=== PATIENT | female | born 1985 | race Caucasian/White ===

== ENCOUNTER 2017-05-05 02:08 | Emergency (ER) | payer BC ==
--- NOTE | 2017-05-05 02:25 | ED Physician Documentation ---
Neck Injury/Pain - HISTORIAN Historian: patient - HPI Stated Complaint: neck/right shoulder pain Chief Complaint: Neck Pain Additional Information: woke up 2 days ago with this pain, Right sided now radiating down to right shoulder, denies trauma, has had similar in past, thinks she slept wrong, has been using heat pad on it. no other complaints, Onset: days ago Duration: continues in ED Recent Injury: No Severity: moderate Quality: burning, sharp, similar- prior back pain Associated Symptoms: denies: fever, chills, sweating, headache, chest pain, weakness, numbness Exacerbated By: movement of neck Relieved By: nothing Further Comments: no - ROS NEURO/PSYCH: denies: difficulty with speech, anxiety EYES/ENT: none CVS/RESP: none CONST: no problems GI/: denies: nausea, vomiting MS/SKIN/LYMPH: none - PAST HX Past History: neck pain. denies: neck injury Cardiac Risk Factors: denies: cardiac disease Surgeries/Procedures: denies: neck surgery, back surgery CT/MRI: No Allergies/Adverse Reactions: Allergies Allergy/AdvReac Type Severity Reaction Status Date / Time cinnamon [Cinnamon] Allergy Verified 05/05/17 02:17 Home Medications: Ambulatory Orders Medication Instructions Recorded NK [NK] 05/05/17 - SOCIAL HX Smoking History: non-smoker Alcohol Use: none Drug Use: none - FAMILY HX Family History: no significant history - VITAL SIGNS Vital Signs: Vital Signs Temp Pulse Resp BP Pulse Ox 99.5 F 86 16 100/85 97 05/05/17 02:10 05/05/17 02:10 05/05/17 02:10 05/05/17 02:10 05/05/17 02:10 - REVIEWED ASSESSMENT Nursing Assessment Reviewed: Yes Vitals Reviewed: Yes Neck Injury/Pain - Physical Exam General Appearance: alert, mild distress EENT: nml ENT inspection Neck: muscle spasm, decreased ROM Nexus Criteria: Nexus criteria neg Back: non-tender Respiratory: chest non-tender Abdomen: non-tender Skin: warm/dry, normal color Extremities: non-tender, normal range of motion, no evidence of injury Neuro/Psych: oriented x3, sensation nml, mood/affect nml Discharge Clincal Impression: Neck pain on right side, Cervical radiculopathy Referrals: [place],Pura, MD [Primary Care Provider] - 2 Days Home Medications: Ambulatory Orders NK [NK] 05/05/17 Condition: Stable Disposition: 01 HOME, SELF-CARE Decision to Admit: NO Date of Decison to Admit: 05/05/17 Decision Time: 02:28
[2017-05-05] MEDS ORDERED: KETOROLAC TROMETHAMINE 30 MG/1ML VIAL ONE (02:30)
[2017-05-05] MEDS ORDERED: ORPHENADRINE CITRATE 60 MG/2ML ONE (02:30)
[2017-05-05] MEDS ORDERED: methylPREDNISolone SOD SUCC 125 MG/2 ML VIAL ONE (02:30)
[2017-05-05] MEDS: methylPREDNISolone SOD SUCC 125 MG/2 ML VIAL IM ONE (02:34)
[2017-05-05] MEDS: ORPHENADRINE CITRATE 60 MG/2ML IM ONE (02:35)
[2017-05-05] MEDS: KETOROLAC TROMETHAMINE 30 MG/1ML VIAL IM ONE (02:36)
[2017-05-05 02:48] VITALS: BP 100/65
== END 2017-05-05 02:45 | disposition home or self-care (01) ==
LOC: ED 02:08
DX: M54.12 Radiculopathy, cervical region (principal); M54.2 Cervicalgia
CPT/HCPCS: 99283; J1885; J2930; J2360

== ENCOUNTER 2018-10-25 07:33 | Emergency (ER) | payer BC ==
--- NOTE | 2018-10-25 08:07 | Diagnostic Imaging Report ---
CONNER CORONA (CEO ZIFF DAVIS) - ER [facility] [address] [facility].[address] 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 History: Evaluate lung chapman. CHEST PAIN AND COUGH SINCE THIS MORNING Comparison exam: None provided. Findings: PA and lateral views of the chest demonstrates a normal cardiac and mediastinal silhouette. No focal infiltrate. No blunting of the costophrenic margins. Osseous structures are appropriate for age. Impression: No acute pulmonary process. Electronically signed on Oct 25, 2018 8:04:55 AM COSTUME DESIGN TEACHER by: Jona PAULA
[2018-10-25] MEDS ORDERED: GUAIFENESIN/CODEINE 10 ML S/F LIQUID DOSE CUP PO ONE (08:23)
--- NOTE | 2018-10-25 08:31 | ED Physician Documentation ---
Upper Respiratory Symptoms - HISTORIAN Historian: patient - HPI Stated Complaint: chest pain Chief Complaint: Cough/ Upper Respiratory Further Comments: yes (33 year old female patient brought in via EMS with cough for 1 month, "coughing so hard I pee my pants", chest sided chest pain which started while she was at work at [employer] today.) - ROS CONST/EYES: denies: weakness, eye redness, eye itching, other CVS/RESP: chest pain. denies: shortness of breath, palpitations LYMPH: denies: leg swelling, rash, swollen glands, ankle swelling, other GI/: none NEURO/PSYCH: denies: fainting, dizziness, confusion, anxiety, depression, other MS/SKIN: denies: joint pain, muscle aches, rash, other - PAST HX Lung Disease: none PE Risk Factors: none Surgeries/Procedures: none Allergies/Adverse Reactions: Allergies Allergy/AdvReac Type Severity Reaction Status Date / Time cinnamon [Cinnamon] Allergy Verified 10/25/18 07:44 Home Medications: Ambulatory Orders Medication Instructions Recorded Albuterol Sulfate [Proair Hfa] 8.5 gm IH Q4H PRN #1 hfa.aer.ad 10/25/18 Cefdinir [Omnicef] 300 mg PO BID #28 capsule 10/25/18 - SOCIAL HX Smoking History: cigarettes - FAMILY HX Family History: denies: none - VITAL SIGNS Vital Signs: Vital Signs Temp Pulse Resp BP Pulse Ox 97.6 F 72 18 116/78 100 10/25/18 07:33 10/25/18 08:51 10/25/18 08:51 10/25/18 08:51 10/25/18 08:51 - REVIEWED ASSESSMENTS Nursing Assessment Reviewed: Yes Vitals Reviewed: Yes Progress - Progress Progress: Reviewed EKG and chest xray results with patient. Reviewed discharge instructions, questions answered. Verbalized understanding. - EKG/XRAY/CT EKG: rhythm (Sr, no acute changes. ) ED Results Lab/Radiology - Lab Results Lab Results: Lab Results 10/25/18 08:04 Influenza A (Rapid) Negative (NEGATIVE) Influenza B (Rapid) Negative (NEGATIVE) - Radiology Radiology Impressions: Examination: PA and lateral chest. History: Evaluate lung chapman. CHEST PAIN AND COUGH SINCE THIS MORNING Comparison exam: None provided. Findings: PA and lateral views of the chest demonstrates a normal cardiac and mediastinal silhouette. No focal infiltrate. No blunting of the costophrenic margins. Osseous structures are appropriate for age. Impression: No acute pulmonary process. Electronically signed on Oct 25, 2018 8:04:55 AM CLAY PREPARATION SUPERVISOR by: Jona Cedeño - Orders Orders: ED Orders Category Date Time Status CHEST 2VIEW [RAD] Stat Exams 10/25/18 07:38 Completed INFLUENZA A&B Stat Lab 10/25/18 08:04 Completed Codeine Phosphate/Guaifenesin [Robitussin AC] Med 10/25/18 08:23 Discontinued 10 ml PO NOW ONE EKG WITH COMPARISON Stat Ther 10/25/18 07:38 Completed Upper Respiratory Symptoms - EXAM General Appearance: mild distress EENT: eyes nml inspection, lids & conjunct. nml, PERRL, ear nml, pain over sinuses, frontal, maxillary, ethmoid, mucosal edema, purulent nasal drainage, airway nml, pharyngeal erythema Respiratory: no resp. 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 group work program aide an over the counter decongestant such as pseudoped, dayquil and Nyquil at your pharmacy. Treat your symptoms with over the counter medication. You may want to try Vicks rub on your chest and/or feet Cough drops as needed for cough and sore throat. Increase your fluid intake juices, hot tea, non-caffeinated beverages Use a humidifier in the room where you sleep. You can also sit in a steam filled bathroom 1-2 times a day. Tylenol or Ibuprofen as needed for fever, pain and body aches. Start daily allergy medication such as Claritin, Nati or Zyrtec. Start a daily nasal spray such as Flonase or Nasonex You may benefit from the use of a netti pot follow package instructions. See your primary care doctor after you have completed your antibiotic if you symptoms have not resolved. Many times it takes multiple rounds of antibiotics to resolve a sinus infection. Condition: Stable Disposition: 01 HOME, SELF-CARE Decision to Admit: NO Decision Time: 08:31
[2018-10-25 08:54] VITALS: BP 116/78
== END 2018-10-25 08:54 | disposition home or self-care (01) ==
LOC: ED 07:33
DX: J01.40 Acute pansinusitis, unspecified (principal); R07.89 Other chest pain; Z72.0 Tobacco use
CPT/HCPCS: 71046; 87400; 99283; 99284; S1016

== ENCOUNTER 2019-03-30 15:19 | Outpatient (CLI) | payer BC ==
[2019-03-30 15:55] LABS: APPEARANCE,URINE CLEAR (CLEAR); COLOR,URINE YELLOW (YELLOW)
[2019-03-30 15:56] LABS: OCCULT BLOOD,URINE NEGATIVE (NEGATIVE); PH URINE 5.5 (5.0 - 8.0); UROBILINOGEN URINE 0.2 Eu (0.2-1.0)
[2019-03-30 15:57] LABS: BASOPHILS % 0.7 % (0.0-1.5)
[2019-03-30 16:08] LABS: eGFR (Non-African) > 60
== END 2019-03-30 15:21 ==
LOC: LAB 15:19
PROVIDERS: ATTEND Orthopaedic Surgery
DX: M94.262 Chondromalacia, left knee (principal)
CPT/HCPCS: 36415; 80053; 81002; 85025

== ENCOUNTER 2019-04-05 08:33 | Day surgery (SDC) | payer BC ==
[2019-04-05] MEDS ORDERED: KETOROLAC TROMETHAMINE 30 MG/1ML VIAL ONE (08:48)
[2019-04-05] MEDS ORDERED: ROPIVACAINE 0.5% IJ ONE (08:48)
[2019-04-05] MEDS ORDERED: 0.9 % SODIUM CHLORIDE PF 10 ML VIAL IJ ONE (08:48)
[2019-04-05] MEDS ORDERED: SEVOFLURANE 250 ML LIQUID IH ONE (08:48)
[2019-04-05] MEDS ORDERED: MIDAZOLAM HCL 2 MG/2 ML VIAL ONE (08:48)
[2019-04-05] MEDS ORDERED: ceFAZolin SODIUM 1 GM VIAL ONE (08:48)
[2019-04-05] MEDS ORDERED: FAMOTIDINE 20 MG/2 ML VIAL IV ONE (08:48)
[2019-04-05] MEDS ORDERED: LIDOCAINE HCL 2% PF 100MG/5ML VIAL IJ ONE (08:48)
[2019-04-05] MEDS ORDERED: SODIUM CHLORIDE IRRIG SOLUTION 3,000 ML IRRIG.SOLN IR ONE (08:48)
[2019-04-05] MEDS ORDERED: DEXAMETHASONE SODIUM PHOSPHATE 10 MG/ML VIAL ONE (08:48)
[2019-04-05] MEDS ORDERED: ONDANSETRON HCL/PF 4 MG/ 2ML VIAL ONE (08:48)
[2019-04-05] MEDS ORDERED: LACTATED RINGERS 1,000 ML IV.SOLN IV ONE (08:48)
[2019-04-05] MEDS ORDERED: PROPOFOL 200 MG/20 ML VIAL IV ONE (08:48)
--- NOTE | 2019-04-18 14:59 | Operative Note ---
PROCEDURE DATE: 04/05/2019 PREOPERATIVE DIAGNOSIS: 1. 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 2. Morbid obesity (BMI 45). POSTOPERATIVE DIAGNOSIS: 1. Lateral meniscus posterior one-third tear. 2. Tricompartmental chondromalacia of knee with most severe involvement of the patellofemoral joint with lesser involvement of the medial and lateral compartments, and prominent superomedial synovial shelf/plica. PROCEDURES PERFORMED: Arthroscopy left knee, arthroscopic debridement of chondromalacia, arthroscopic partial synovectomy, arthroscopic partial lateral meniscectomy. SURGEON: Michael Saeed M.D. ANESTHESIA: General. FLUIDS RECEIVED: Recorded as per Anesthesia Record. ESTIMATED BLOOD LOSS: 5 mL. TOURNIQUET TIME: Approximately 37 minutes. DESCRIPTION OF PROCEDURE: The patient was given general anesthesia successfully, having been transported from the holding area into the operating room and onto the OR table in the supine position. She did receive 3 gm of Ancef intravenously. Sterile prep and drape of the left lower extremity was carried out. The patient was noted to be in knee scope position, knee flexed, thigh schaeffer in place. The extremity was then exsanguinated, and the pneumatic tourniquet insufflated to a pressure of 350 mmHg after exsanguination of the extremity using an Esmarch wrap. Site verification completed, a lateral parapatellar portal was established, after which a medial parapatellar portal was established for visualization and working within the knee. Anterior and posterior cruciate ligaments were viewed, probed, and noted to be intact. Medial compartment exam did reveal intact medial meniscus, and this was verified with a probe. The medial femoral condylar surface did reveal some [id number] chondromalacia along the medial margin most prominently. The probing confirmed that medial tibial plateau was smooth. The medial meniscus intact, posteromedial recess was examined and there was noted to be no abnormality within. I did perform debridement using arthroscopic motorized shaver, Arthrex, of the medial femoral condylar chondromalacia. Attention then turned to the lateral compartment. A posterior one-third central lateral meniscus tear was identified, but no additional tears were noted upon probing. There was minimal chondromalacia in the lateral compartment, requiring minimal debridement which was carried out using arthroscopic motorized shaver. The joint exam revealed no loose bodies. No osteochondral fragmentation was observed. Medial and lateral gutters were free of appreciable abnormalities. The patellofemoral joint exam did reveal chondromalacia involving the patella, as well as, to a lesser degree, the femoral trochlear groove. There was a prominent superomedial synovial shelf/plica, and this was excised using arthroscopic motorized shaver. The patella was noted to track well within the patellofemoral groove/along the surface of the femoral trochlear groove. Chondromalacia was most prominent along the inferior aspect of the patella, particularly lateral and inferior. Motorized shaver having been used to debride chondromalacia as well as perform partial synovectomy and to perform partial lateral meniscectomy, the joint was thereafter copiously irrigated. It was then sucked dry of irrigation fluid. It was then instilled with approximately 25 mL of 0.125% plain ropivacaine solution. I injected approximately 5 mL of 0.125% plain ropivacaine solution about each of the two portal sites, and a sterile soft dressing was applied after closure of each of the portals with a simple 4-0 monofilament nylon stitch. Sterile soft dressing applied, tourniquet was released and the extremity was elevated on pillows above the level of the heart, after which I.C.E. Down pack was applied. Good capillary refill was noted distally upon release of the tourniquet. MICHAEL SAEED M.D. DATE TIME JOEL/lara (Please copy SA provider when applicable) Job #[id number] CHAI
== END 2019-04-05 14:02 | disposition home or self-care (01) ==
LOC: OPSURG 08:33
PROVIDERS: ATTEND Orthopaedic Surgery
DX: S83.282A Other tear of lateral meniscus, current injury, left knee, initial encounter (principal); M94.262 Chondromalacia, left knee; M67.52 Plica syndrome, left knee; E66.01 Morbid (severe) obesity due to excess calories; Z68.42 Body mass index [BMI] 45.0-49.9, adult
CPT/HCPCS: J0690; J1885; J2001; J2250; J2405; J2704; J7120

== ENCOUNTER 2019-05-11 10:24 | Outpatient (CLI) | payer BC ==
--- NOTE | 2019-05-17 15:43 | OP Clinic Progress Note ---
DRAFT PROGRESS NOTE: Ms. Kim returns for recheck following arthroscopy of her left knee on 04/05/2019. She is doing well. She has well-healing incisions and is continuing with outpatient physical therapy. She feels she has made steady gains, is getting better weekly. I did note that she lacks about 5-10 degrees of full extension actively, is able to passively obtain full extension. She has been working at [employer] sitting on a sitting stool, using a walking cane, does not feel that she needs either at this point, would prefer to go without them and feels steady on her feet without the cane in particular. I did note that the therapist has advised her that she would benefit from additional therapy visits as an outpatient and I think that should continue on a regular basis, two to three times per week as an outpatient with concurrent and subsequent home program as long as measurable gains are being made. Thereafter, she may convert to a home program altogether. PHYSICAL EXAMINATION: On exam, she has no effusion, has mild crepitus, not unexpectedly. I noted intact motor sensory exam distally. PLAN: She says she is happy with the results, and does note improvement. I did advise her that she may continue to have difficulty climbing stairs using that left knee in the process, given the underlying pathology which revealed tricompartmental chondromalacia with most severe involvement of patellofemoral joint with lesser involvement of medial and lateral compartments, prominent superomedial synovial shelf/plica and lateral meniscus posterior one-third tear, all of which were addressed. We discussed expectations and limitations again today, as has been done in the past. She acknowledges that she is better but also acknowledges that she understands she is not going to get "100% cured" or "all better." I did encourage her in weight loss efforts, and she is to follow up on an as needed basis. Michael Villa MD (Dictated/not signed) /[employer] [id number] Job #[id number] MTDD
== END 2019-05-11 10:55 ==
LOC: ORHTO 10:24
PROVIDERS: ATTEND Orthopaedic Surgery
DX: M22.42 Chondromalacia patellae, left knee (principal)
CPT/HCPCS: 99213

== ENCOUNTER 2019-06-20 09:30 | Outpatient (CLI) | payer BC | END 2019-06-20 09:33 | LOC: LAB 09:30 | PROVIDERS: ATTEND Family Medicine | DX: R22.9 Localized swelling, mass and lump, unspecified (principal) | CPT/HCPCS: 36415; 85027 ==